=== PATIENT | female | born 1965 | race Two or more races ===

== ENCOUNTER 2017-11-17 05:02 | Inpatient (IN) | payer OTHER ==
[2017-11-09 13:55] VITALS: BMI 29.9
[2017-11-17] MEDS ORDERED: PHENAZOPYRIDINE HCL 100 MG TABLET (FP) PO STA (06:44)
[2017-11-17] MEDS ORDERED: CEFAZOLIN 2 GM in DEXTROSE 5%-WATER - 100 ML IVPB ONE (06:44)
--- NOTE | 2017-11-17 06:44 | HP ---
History & Physical Update - History History: No Change - Physical Physical: No Change - Assessment Assessment: No Change - Plan Plan: No Change (No change in my HP from 11/09/17)
[2017-11-17] MEDS ORDERED: ceFAZolin SODIUM 1 GM VIAL ONE (07:42)
[2017-11-17] MEDS ORDERED: PHENAZOPYRIDINE HCL 100 MG TABLET (FP) ONE (07:44)
[2017-11-17] MEDS ORDERED: ROPIVACAINE HCL 0.5% 30ML VIAL ONE (08:51)
[2017-11-17] MEDS ORDERED: DEXAMETHASONE SOD PHOSPHATE/PF 10 MG/ML SDV ONE (08:51)
[2017-11-17] MEDS ORDERED: MIDAZOLAM HCL 2 MG/2 ML SINGLE DOSE VIAL ONE ×2 (08:52)
[2017-11-17] MEDS ORDERED: fentaNYL CITRATE 250 MCG/5 ML VIAL ONE (09:07)
[2017-11-17] MEDS ORDERED: ROCURONIUM BROMIDE 50 MG/5 ML VIAL ONE (09:07)
[2017-11-17] MEDS ORDERED: PROPOFOL 20 ML ONE (09:07)
[2017-11-17] MEDS ORDERED: DEXAMETHASONE SOD PHOSPHATE 4 MG/1 ML VIAL ONE (09:08)
[2017-11-17] MEDS ORDERED: LIDOCAINE HCL/PF 2% SDV 5ML VIAL ONE (09:08)
[2017-11-17] MEDS ORDERED: ceFAZolin SODIUM 1 GM VIAL IVPB ONE (10:50)
[2017-11-17] MEDS ORDERED: ePHEDrine SULFATE 50 MG/1 ML AMPULE ONE (11:19)
[2017-11-17] MEDS ORDERED: NEOSTIGMINE METHYLSULFATE 0.5 MG/ML - 10 ML MDV ONE (11:49)
[2017-11-17] MEDS ORDERED: GLYCOPYRROLATE 0.2 MG/1 ML VIAL ONE (11:50)
[2017-11-17] MEDS ORDERED: DEXAMETHASONE SOD PHOSPHATE 4 MG/1 ML VIAL IVPUSH PRN (12:10)
[2017-11-17] MEDS ORDERED: ONDANSETRON 4 MG/2 ML VIAL IVPUSH PRN ×2 (12:10)
[2017-11-17] MEDS ORDERED: PROMETHAZINE HCL 25 MG/1 ML VIAL IVPB PRN (12:10)
[2017-11-17] MEDS ORDERED: LACTATED RINGERS SOLUTION 1,000 ML/1,000 ML INFUS.BAG IV SCH (12:15)
[2017-11-17] MEDS ORDERED: LACTATED RINGERS SOLUTION 1,000 ML IV SCH (12:15)
[2017-11-17] MEDS: HYDROmorphone *PCA* 10MG/50ML DISP.SYRIN PCA SCH ×2 (12:45→15:37)
--- NOTE | 2017-11-17 13:07 | OP ---
DATE OF OPERATION: 11/17/2017 PREOPERATIVE DIAGNOSIS: Leiomyomatous uterus, serosal myomas, and menorrhagia. POSTOPERATIVE DIAGNOSIS: Leiomyomatous uterus, serosal myomas, and menorrhagia. OPERATION: Total abdominal hysterectomy and bilateral salpingectomy. SURGEON: Mayra Tubbs MD TACKING MACHINE OPERATOR: Hilda ARIZMENDI. ANESTHESIA: General. FINDINGS: Uterus to approximately 12 weeks in size. PROCEDURE: The patient was taken to the operating room and placed in the supine position and prepped and draped in the usual sterile fashion. A time out was performed in accordance with hospital regulations. A Pfannenstiel skin incision was made through the patients previous scar. Cautery was then used to go through the layers of abdominal wall through to the fascia. The fascia was cut in midline and cautery was then used to open the fascia in a smiling fashion. Pollo was then used to bluntly and sharply dissect the rectus muscle off the fascia. Muscle was split in midline. The peritoneal cavity was then entered and carried up and downwards. Bladder retractors were placed. A second uterine incision was then entered. The bladder was bluntly dissected out of the operative field. The uteroovarian ligament was identified and clamped and cut using LigaSure. Uterine arteries were skeletonized and clamped and cut using LigaSure. The cardinal ligaments were identified and clamped and cut down to the level of the cervix. The vagina was then entered with a scalpel. Tracee scissors were then used to open the vaginal cuff and the cervix was removed from the vagina. Specimen was submitted to pathology. The tubes were bilaterally grasped and coagulated and cut and the specimens were submitted to pathology. All pedicles were identified and found to be hemostatic. Peristalsis was seen in the uterus. Interceed was then placed on the cuff and tied in place. All packing was then removed. A sweep was done. The omental adhesions were then lysed. Peritoneum was closed using 0-Vicryl suture. The fascia was then closed using 0 Vicryl suture after the muscles had been approximated with 0 Vicryl suture. The fascia was then closed with 0 Vicryl suture in 2 parts continuous. Subcutaneous was closed using interrupted 0-Biosyn and the skin was then closed using 3-0 Vicryl in a subcuticular fashion. The wounds were washed and dressed. Estimated blood loss 100 mL. All counts were correct. Abdominal sweep had been done. The patient tolerated the procedure well and was taken to the recovery room in stable condition. MAYRA TUBBS M.D. [id number]
[2017-11-17] MEDS: CEFAZOLIN 1 GM/D5W 1 GM/50 ML BAG IVPB SCH (17:25)
[2017-11-17] MEDS: SIMETHICONE 80 MG TAB.CHEW (FP) PO SCH (18:39)
--- NOTE | 2017-11-17 18:52 | OP ---
Operative Note - Note: Operative Date: 11/17/17 Operation: Total Hysterectomy. bilateral salpingectomy Findings: Uterus 12 cm Post-Operative Diagnosis: Same as Pre-op Surgeon: Jina Tubbs Herbarium Worker: Hilda Kam Anesthesia: General Estimated Blood Loss (mls): 100 Operative Report Dictated: Yes
[2017-11-17] MEDS ORDERED: MEPERIDINE HCL CARPU-JECT 50 MG/1 ML DISP.SYRIN IM PRN (21:39)
[2017-11-18] MEDS: CEFAZOLIN 1 GM/D5W 1 GM/50 ML BAG IVPB SCH (01:52)
[2017-11-18 07:50] LABS: HEMATOCRIT 33.6 % (32.4-45.2); HEMOGLOBIN 11.6 GM/dL (10.7-15.3); MCH 31.2 pg (25.7-33.7); MCHC 34.5 g/dl (32.0-36.0); MEAN CELL VOLUME 90.5 fl (80-96); PLATELET COUNT 218 K/MM3 (134-434); RBC 3.71 M/mm3 (3.60-5.2); RDW 12.8 % (11.6-15.6); WHITE BLOOD COUNT 9.1 K/mm3 (4.0-10.0)
--- NOTE | 2017-11-18 08:25 | SURG ---
Surgery Hose Maker Note Hose Maker: Hilda Kam PA-C Date of Service: 11/17/17 Diagnosis: Leiomyomatous Uterus. Intramural myoma Procedure: total abdominal hysterectomy. bilateral salpingectomy I was present for the entirety of the operative procedure. For further detail, please refer to operative report. Visit type - Case Type Case Type: Scheduled Admission - Emergency Emergency Visit: No - New patient This patient is new to me today: Yes Date on this admission: 11/18/17
[2017-11-18 08:35] LABS: ALBUMIN 3.1 g/dl (3.4-5.0); ANION GAP 11 (8-16); BLOOD UREA NITROGEN 14 mg/dL (7-18); CALCIUM 8.8 mg/dL (8.5-10.1); CHLORIDE 106 mmol/L (98-107); CO2 24 mmol/L (21-32); CREATININE 0.5 mg/dL (0.55-1.02); GLUCOSE,RANDOM 123 mg/dL (74-106); POTASSIUM 4.6 mmol/L (3.5-5.1); SGOT/AST 20 U/L (15-37); SGPT/ALT 33 U/L (12-78); SODIUM 141 mmol/L (136-145)
[2017-11-18 08:38] LABS: ALK PHOS 74 U/L (45-117); BILIRUBIN,TOTAL 0.4 mg/dL (0.2-1.0); TOT PROT 5.9 g/dl (6.4-8.2)
--- NOTE | 2017-11-18 09:13 | PN ---
Progress Note (short form) - Note Progress Note: surgery POD#1 total abdominal hysterectomy with bilateral salpingectomy. Patient seen and examined at bedside with no complaints. Patient states she has not been out of be since the surgery and she still has a cruz. Her pain is controlled and she is tolerating a clear diet. She denies and CP, SOB, N/V fever or chills. Vital Signs Temp 98.4 F 11/18/17 06:00 Pulse 94 H 11/18/17 06:00 Resp 20 11/18/17 06:00 BP 130/74 11/18/17 06:00 Pulse Ox 98 11/18/17 07:45 Intake & Output 11/17/17 11/17/17 11/18/17 11:59 23:59 11:59 Intake Total 1255 404 7339 Output Total 350 700 300 Balance 2287 703 8411 Intake: IV 9724 964 7728 Lactated Ringers Solution 500 1500 1,000 ml @ 125 mls/hr IV ASDIR ANNE Rx#: [id number] IVPB 100 50 Output: Urine 250 700 300 Cruz 300 300 Estimated Blood Loss 100 Other: Voiding Method Indwelling Catheter CBC, BMP 11/18/17 07:15 11/18/17 07:15 PE: A&Ox3, NAD unlabores resp on RA Abdomen: obese, soft, non-distended, with mild TTp throughout appropriate to status. incision c/d/i with steri strips, no evidence of D/c, or tracking erythema. b/l LE compartments soft, supple, teds/scds on with + pedal pulses. Problem List - Problems (1) Leiomyoma Assessment/Plan: POD #1 ANABEL/ Salpingectomy doing well. Plan: 1) Continue DVT prophylaxis with lovenox, b/l teds and scds 2) D/c cruz 3) d/c SMT MACHINE OPERATOR start OxyCONTIN 10mg BID 4) OOB with assist 5) d/c planing for tomorrow Code(s): D21.9 - BENIGN NEOPLASM OF CONNECTIVE AND OTHER SOFT TISSUE, UNSP
[2017-11-18] MEDS ORDERED: PCA PUMP KEY 1 EACH EACH ONE (09:41)
[2017-11-18] MEDS: ENOXAPARIN NA (PORCINE) 40 MG/0.4 ML DISP.SYRIN SQ SCH (09:59)
[2017-11-18] MEDS: SIMETHICONE 80 MG TAB.CHEW (FP) PO SCH (09:59)
[2017-11-18] MEDS: oxyCODONE HCL 10 MG SUSTAINED ACTING TABLET PO SCH ×2 (11:21→23:44)
[2017-11-18] MEDS ORDERED: oxyCODONE HCL 5 MG TABLET PO PRN ×2 (12:00)
--- NOTE | 2017-11-18 13:54 | PATH ---
Surgical Pathology Report Patient Name: KWASI PIÑA [facility]. Rec. #: [id number] /Age/Gender: 1965 (Age: 52) / F Account: [id number] Location: [facility] OBS/PORT DRIER Taken: 11/17/2017 Received: 11/17/2017 Reported: 11/18/2017 Physicians: Jina Tubbs M.D. Specimen(s) Received UTERUS, CERVIX, BILATERAL FALLOPIAN TUBES Clinical History Intramural leiomyoma Final Diagnosis UTERUS AND CERVIX WITH BILATERAL FALLOPIAN TUBES, HYSTERECTOMY AND BILATERAL SALPINGECTOMY: UTERUS AND CERVIX, 426 GRAMS, WITH LEIOMYOMATA, INACTIVE ENDOMETRIUM, AND CERVIX WITH CHRONIC INFLAMMATION (FOLLICULAR CERVICITIS). BENIGN BILATERAL FALLOPIAN TUBES PRESENT. Electronically Signed Reuben Saldivar M.D. Gross Description Received in formalin labeled "uterus, cervix, bilateral fallopian tubes," is a 426 g uterus with an attached cervix and no attached adnexa. The bilateral, undesignated fallopian tubes are separately received within the same container. The specimen measures 13 cm from superior to inferior, 9 cm from left to right and 7 cm from anterior to posterior. The cervix measures 3.3 cm in length and 2 cm in diameter. The ectocervix is pink-griffith, smooth and glistening. The endocervix is unremarkable. The endometrial cavity measures 5 cm in length and 3.7 cm from cornu to cornu. The endometrium is griffith-red and averages 0.1 cm thickness. The myometrium displays an 8 cm in greatest dimension intramural nodule. The cut surface of the nodule is griffith, firm to rubbery with a whorled architecture. No areas of hemorrhage or necrosis are identified. The remaining myometrium is griffith-pink and measures up to 5.5 cm in thickness. The undesignated, fimbriated fallopian tubes measure 3.5 and 4.0 cm in length. The outer surfaces are griffith-pink and smooth. Sectioning reveals unremarkable lumen. Public Information Relations Manager sections are submitted in 14 cassettes as follows: 1-anterior cervix; 2-posterior cervix; 5-6-sqnebqoz endomyometrium; 8-9-xslepxqdt endomyometrium; 3-87-jyskhodyar nodule; 11-shorter fallopian tube fimbria; 12-cross sections of shorter fallopian tube; 13-longer fallopian tube fimbria; 14-cross sections of longer fallopian tube. 11/17/201711/17/2017
--- NOTE | 2017-11-18 15:25 | PN ---
Progress Note (short form) - Note Progress Note: Anesthesia post op note, EYELET RIVETER note. POD#1 S/P ANABEL, Bilateral salpingectomy under general anesthesia. EYELET RIVETER post op. Pat seen and examined, VSS. Pain well controlled. On po meds. Ambulating. No apparent post anesthesia complications. Signed off.
[2017-11-18] MEDS: ACETAMINOPHEN 325 MG TABLET (FP) PO PRN (15:31)
[2017-11-19] MEDS: ACETAMINOPHEN 325 MG TABLET (FP) PO PRN (06:04)
--- NOTE | 2017-11-19 06:56 | DS ---
"Physical Exam-ASSOCIATION EXECUTIVE Vital Signs: Vital Signs Temperature 99.2 F 11/19/17 06:02 Pulse Rate 91 H 11/19/17 06:02 Respiratory Rate 20 11/19/17 06:02 Blood Pressure 124/74 11/19/17 06:02 O2 Sat by Pulse Oximetry (%) 98 11/18/17 07:45 Constitutional: Yes: Well Nourished, No Distress Gastrointestinal: Yes: WNL, Soft Breast(s): Yes: WNL Musculoskeletal: Yes: WNL Extremities: Yes: WNL Edema: No Wound/Incision: Yes: Clean/Dry, Steri Strips, Dressing Dry and Intact Labs: CBC, BMP 11/18/17 07:15 11/18/17 07:15 Discharge Summary Reason For Visit: INTRAMURAL LEIOMYOMA Current Active Problems Leiomyoma (Acute) Procedures: Principal: Total abdominal Hysterectomy. BIlateral salpingectomy Hospital Course: unremarkable Condition: Good - Instructions Diet, Activity, Other Instructions: Dr. Jina Tubbs Pm Technician discharge instructions Physical activity Resume your normal everyday activity as tolerated no heavy lifting or exercise until seen by your surgeon. You may walk unlimited jeancarlos of and climb stairs. You may resume driving the car when you feel safe and comfortable behind the wheel and are not taking narcotics. No sexual activity as instructed by Dr. Tubbs. Wound care If you have a bandage, leave it on, and keep dry for 48-72 hours. After that time discard the outer bandage. The tapes on the skin under the outer bandage should be left in place. They will peel off in the next 7 to 10 days. Do Not Peel them off. You may shower the day but do not submerge the incision. Do not apply any lotions or ointments to the incision. Diet There are no dietary restrictions. Eat healthy, high-fiber foods. Drink 6 to 8 glasses of liquid each day. This will assist in keeping your bowels are regular. Pain management You may take Tylenol or acetaminophen or Ibuprofen (for example, Motrin, Advil etc.) from my pain prescription medication is ordered should be taken as prescribed for moderate to severe pain. Please note that your prescription contains Tylenol and additional Tylenol should not be taken at the same time as this may result in and overdose. Call Dr. Tubbs for any of the following: Severe pain not relieved by medication Fever of 101 or higher Excessive bleeding or drainage on dressing Inability to urinate If you experience any chest pain or shortness of breath seek emergency treatment immediately. Call the office at [phone] to confirm your follow up appointment approximately 7 days post-op. This report was requested by: Hilda Breen | Reference #: [id number] Disposition: HOME - Home Medications Comprehensive Discharge Medication List: Ambulatory Orders Simvastatin [Zocor] 40 mg PO DAILY 03/07/12 Aspirin [Ecotrin] 81 mg PO DAILY 11/17/17 Losartan Potassium [Cozaar -] 50 mg PO DAILY 11/17/17 Metoprolol Succinate [Toprol Xl -] 50 mg PO DAILY 11/17/17 Oxycodone HCl/Acetaminophen [Percocet 5-325 mg Tablet] 1 - 2 tab PO Q4H #20 tablet MDD 6 11/17/17"
[2017-11-19 09:30] LABS: HEMATOCRIT 37.2 % (32.4-45.2); HEMOGLOBIN 12.6 GM/dL (10.7-15.3); MCHC 33.8 g/dl (32.0-36.0); MEAN CELL VOLUME 91.7 fl (80-96); MEAN PLT VOLUME 8.2 fl (7.5-11.1); PLATELET COUNT 247 K/MM3 (134-434); RBC 4.05 M/mm3 (3.60-5.2)
[2017-11-19 09:35] LABS: ALBUMIN 3.4 g/dl (3.4-5.0); ANION GAP 7 (8-16); BLOOD UREA NITROGEN 13 mg/dL (7-18); CALCIUM 8.8 mg/dL (8.5-10.1); CHLORIDE 105 mmol/L (98-107); CO2 29 mmol/L (21-32); GLUCOSE,RANDOM 175 mg/dL (74-106); POTASSIUM 4.4 mmol/L (3.5-5.1); SGOT/AST 19 U/L (15-37); SGPT/ALT 34 U/L (12-78); SODIUM 141 mmol/L (136-145)
[2017-11-19 09:37] LABS: ALK PHOS 80 U/L (45-117); BILIRUBIN,TOTAL 0.3 mg/dL (0.2-1.0); CREATININE 0.8 mg/dL (0.55-1.02); TOT PROT 6.8 g/dl (6.4-8.2)
[2017-11-19] MEDS: ENOXAPARIN NA (PORCINE) 40 MG/0.4 ML DISP.SYRIN SQ SCH (09:43)
[2017-11-19] MEDS: oxyCODONE HCL 10 MG SUSTAINED ACTING TABLET PO SCH (09:43)
[2017-11-19] MEDS: SIMETHICONE 80 MG TAB.CHEW (FP) PO SCH (09:43)
[2017-11-19 11:56] VITALS: BP 117/67; PULSE 93; TEMP 99
== END 2017-11-19 11:00 | disposition home or self-care (01) | DRG 743 ==
LOC: JSAMEDAYSX 05:02 → EDSTATUS 10:00 → J3W 14:14
PROVIDERS: ADMIT Obstetrics & Gynecology; ATTEND Obstetrics & Gynecology
PROC: 0UT70ZZ Resection of Bilateral Fallopian Tubes, Open Approach (ICD-10-PCS; 2017-11-17)
PROC: 0UT90ZZ Resection of Uterus, Open Approach (ICD-10-PCS; principal; 2017-11-17 09:30)
DX: D25.1 Intramural leiomyoma of uterus (principal); D25.2 Subserosal leiomyoma of uterus; N72 Inflammatory disease of cervix uteri; N92.0 Excessive and frequent menstruation with regular cycle
CPT/HCPCS: 36415; 80053; 85027; 86850; 86900; 86901; 94010; 94760